=== PATIENT | male | born 1980 | race Two or more races ===

== ENCOUNTER 2019-02-27 16:30 | Emergency (ER) | payer OTHER ==
[~2019-02-27] VITALS: Ht 172.7 cm; Wt 75.0 kg
[2019-02-27 16:52] VITALS: BP 126/94
[2019-02-27 17:48] LABS: EOSINOPHILS % 1.9 % (0.0-5.0); HEMATOCRIT. 41.1 % (42.0-52.0); HEMOGLOBIN. 13.7 g/dL (14.0-18.0); LYMPHOCYTES % 44.6 % (20.0-50.0); MEAN CORPUSCULAR HEMOGLOBIN 30.4 pg (28.0-32.0); MEAN CORPUSCULAR VOLUME 91.2 fL (80.0-94.0); MEAN PLATELET VOLUME 8.2 fl (7.4-10.4); MONOCYTES % 8.5 % (2.0-8.0); PLATELET 256 x1000/uL (130-400); RED BLOOD CELL COUNT 4.51 mill/uL (4.7-6.1); RED CELL DISTRIBUTION WIDTH 14.9 % (11.6-14.6)
[2019-02-27 17:50] LABS: CHLORIDE 108 mEq/L (98-107)
[2019-02-27 18:04] LABS: ETHANOL BLOOD 404 mg/dL
== END 2019-02-27 18:32 | disposition home or self-care (01) ==
LOC: ER 16:30 → EDBD 16:30 → ER 18:32
DX: F10.229 Alcohol dependence with intoxication, unspecified (principal); Y90.8 Blood alcohol level of 240 mg/100 ml or more
CPT/HCPCS: 36415; 80320; 99283; G0480